=== PATIENT | female | born 1930 | race Caucasian/White ===

== ENCOUNTER 2021-06-06 14:39 | Emergency (ER) | payer OTHER ==
[~2021-06-06] VITALS: Ht 152.4 cm; Wt 63.0 kg
[~2021-06-06 14:39] MED LIST: BYSTOLIC 5 MG5 M1 PO; CATAPRES-TTS 10.1 M1 TRANSDERM; CEFDINIR300 MG PO; CELEBREX 200 M200 M1 PO; CLONIDINE HCL0.1 MG PO; CLONIDINE0.1 PO; COLACE 100 MG100 MG PO; FUROSEMIDE 20 M20 M1 PO; HYDRALAZINE 5050 MG PO; HYDROCHLOROTH12.5 M1 PO; HYDROCHLOROTH12.5 MG PO; HYDROCODON-ACE1 EAC7 PO; IRON160 M1 PO; LIDODERM1 EACH TRANSDERM; LISINOPRIL20 MG PO; LOPRESSOR100 M1 PO; MACROBID 100 M100 M1 PO; METOPROLOL SUC100 MG PO; NOHOMEMEDICATIONS; NORVASC 2.5 MG2.5 M1 PO; PRINIVIL20 MG PO; TOPROL XL25 MG PO; XARELTO10 MG PO
[2021-06-06 15:21] LABS: HEMATOCRIT 34.7 % (37.0-47.0); HEMOGLOBIN 11.6 gm/dL (12.0-15.0); MCH 30.3 pg (26.0-34.0); MCHC 33.5 g/dL (28.0-37.0); MCV 90.7 fL (80.0-100.0); RBC 3.82 mil/uL (4.20-5.00); RDW 13.1 % (10.5-14.5); WBC 3.2 thou/uL (4.0-11.0)
[2021-06-06 15:38] LABS: ANION GAP 9 mmol/L (7-16); BUN 38 mg/dL (7-18); CALCIUM 10.1 mg/dL (8.5-10.1); CHLORIDE 105 mmol/L (98-107); CO2 26 mmol/L (21-32); GLUCOSE 94 mg/dL (74-106); POTASSIUM 3.6 mmol/L (3.5-5.1); SODIUM 140 mmol/L (136-145)
[2021-06-06 15:49] LABS: ALBUMIN 3.9 g/dL (3.4-5.0); MAGNESIUM 2.1 mg/dL (1.8-2.4); PHOSPHORUS 3.6 mg/dL (2.6-4.7); SALICYLATE < 2.8 mg/dL (2.8-20.0); SGOT 38 U/L (15-37); SGPT 25 U/L (14-59); TOTAL BILIRUBIN 0.7 mg/dL (0.2-1.0); TOTAL PROTEIN 7.5 g/dL (6.4-8.2)
[2021-06-06 17:49] LABS: URINE BILIRUBIN NEGATIVE (Negative); URINE BLOOD NEGATIVE (Negative); URINE CLARITY CLEAR; URINE COLOR YELLOW; URINE GLUCOSE-RANDOM* NEGATIVE (Negative); URINE KETONES NEGATIVE (Negative); URINE LEUKOCYTES-REFLEX 1+ (Negative); URINE NITRITE-REFLEX NEGATIVE (Negative); URINE PROTEIN (DIPSTICK) NEGATIVE (Negative); URINE UROBILINOGEN 0.2 E.U./dl (0.2-1.0)
[2021-06-06 17:58] LABS: BACTERIA-REFLEX 1-9 Few /HPF (None Seen); CASTS None Seen /LPF (None Seen); CRYSTALS None Seen /LPF (None Seen); SQUAMOUS 0-3 Few /LPF (0-3); URINE RBC None Seen /HPF (NONE SEEN); URINE WBC-REFLEX 6-15 Few /HPF (0-5); WBC CLUMPS Few (None Seen)
[2021-06-06 17:59] LABS: AMP/METHAMP Negative (Negative); BARBITURATES Negative (Negative); BENZODIAZEPINES Negative (Negative); COCAINE Negative (Negative); METHADONE Negative (Negative); OPIATES Negative (Negative); PCP Negative (Negative)
[2021-06-06 21:13] VITALS: BP 143/70
--- NOTE | 2021-06-09 07:34 | EKG ---
[place] [address] [facility] [place] [address] ELECTROCARDIOGRAM REPORT Name: NYEMEGANERENDIRA Room #: DEP JAYESH Rehman#: [id number] Admission: 06/06/21 Attend Phys: Discharge: 06/06/21 Date of : [birth year] Report #: [id number] [facility] ED Test Date: 2021-06-06 Test Time: 14:56:26 Pat Name: RAUL AYALA Department: Room: Gender: F Staff Mine Warfare Officer: : 1930 Requested By: Dante Richards Order Number: [id number] MD: Joey Alejandro Measurements Intervals [place] Rate: 80 P: -59 ND: 185 QRS: -57 QRSD: 106 T: 107 QT: 492 QTc: 568 Interpretive Statements Atrial-ventricular dual-paced rhythm No further analysis attempted due to paced rhythm No previous ECG available for comparison Electronically Signed On 06-09-2021 7:34:36 CONTROL OPERATOR FLOW COAT by Joey Alejandro [email or web address] <ELECTRONICALLY SIGNED> By: Joey Alejandro MD, [facility] 06/09/21 0734 [id number] Joey Alejandro MD, FACC /EPI
== END 2021-06-06 21:18 ==
LOC: ER 14:39
PROVIDERS: Emergency Medicine
DX: R44.1 Visual hallucinations (principal); Z20.822 Contact with and (suspected) exposure to COVID-19; I10 Essential (primary) hypertension; Z95.0 Presence of cardiac pacemaker; Z79.899 Other long term (current) drug therapy; Z88.8 Allergy status to other drugs, medicaments and biological substances; Z88.1 Allergy status to other antibiotic agents

== ENCOUNTER 2021-06-06 17:53 | Inpatient (IN) | payer OTHER ==
[~2021-06-06] VITALS: Ht 162.6 cm; Wt 69.1 kg
--- NOTE | 2021-06-06 22:14 | NUR ---
Patient admitted to unit from ED at 2120 this shift. Pt calm et cooperative when brought to unit in w/c from ED. Pt ambulated from chair to bed et later ambulated from bed to BR with assistance of 1 with steady gait. Pt states that she usually uses a cane to assist with ambulation. Pt wears glasses et has dentures in place. Pt denies the use of hearing aids. VSWNL. Health assessment with no abnormalities noted at present time. Skin assessment reveals no wounds or lacerations at present time. Pt denies SI/HI/AVH at present time but states that she has been seeing ghosts et that they want to steal things from her. Pt can recall the hallucinations clearly. Pt is continent of bowel et bladder et had a BM this shift. Hospitalist GRADES 7 8 TUTOR notified of pt admission to unit. Psych GRADES 7 8 TUTOR notified of pt admission to unit et orders received et documented. DPOA notified of pt's admission to unit et consent to treat received from DPOA Victor Manuel Esparza (son). DPOA was also notified of pt code for information or to talk with pt. All questions answered at time of call. Pt given unit handbook et all questions answered. Pt currently resting in bed with eyes closed. Will continue to monitor per unit protocol.
[2021-06-06 22:23] VITALS: BP 132/49
[2021-06-07 05:07] LABS: CHOLESTEROL 161 mg/dL (<200); HDL CHOLESTEROL 65 mg/dL (>40); LDL CHOLESTEROL 82 mg/dL (<100); TC:HDL 2.5 Ratio (Not establshd); TRIGLYCERIDE 70 mg/dL (<150); VLDL 14 mg/dL (<40)
[2021-06-07 05:10] LABS: SERUM ASSESSMENT Clear
[2021-06-07 09:01] VITALS: BP 134/86
[2021-06-07 11:00] VITALS: BP 134/86
--- NOTE | 2021-06-07 12:46 | NUR ---
RESUMMED CARE FROM OVERNIGHT SHIFT THIS AM, PATIENT SITTING IN DAY ROOM QUIET. PATIENT ALERT ORIENTED TIMES 4 PATIENT DENIES SI/HI/AH/VH AT PRESENT. PATIENT BEFORE SHE CAME HERE WAS SEEING GHOSTS. SHE STATES NOW SHE KNOWS THE GHOSTS WERE NOT REAL. PATIIENT ATE BREAKFAST TOOK MEDICATION WITHOUT INCIDENCE. PATIENT STATES HER ANXIETY AND DEPRESSION A 2 PATIENTS ABDOMEN SOFT BOWEL SOUNDS PRESENT. PATIENTS LUNGS CLEAR PATIENT PARTICPATES IN ALL GROUPS PATIENT HAS NOT DISPLAYED ANY BEHAVIORS. WILL CONTINUE TO MONITOR PATIENT FOR SAFETY AND BEHAVIORS.
[2021-06-07 19:33] VITALS: BP 109/66
--- NOTE | 2021-06-08 05:26 | NUR ---
Assumed care of pt at 1900. Pt calm et cooperative with pleasant demeanor this shift. Took medications whole without difficulty. Ambulates the halls ad lars with steady gait. Isolated in room most of shift. Continent of bowel et bladder et independent with cares. VSWNL. Health assessment with no abnormalities noted this shift. Denies SI/Hi at present time. Currently resting in bed with eyes closed. Will continue to monitor per unit protocol.
[2021-06-08 05:36] LABS: GLYCOHEMOGLOBIN (HGB A1C) 5.5 % (4.8-5.6)
[2021-06-08 09:26] VITALS: BP 160/84
[2021-06-08 10:13] VITALS: BP 160/84
--- NOTE | 2021-06-08 12:34 | NUR ---
PATIENT CARE ASSUMED AT 0700 - CALM AND AGREEABLE. STATED HAD GOOD NIGHT SLEEP. NO PAIN DISCOMFORT WHEN ASSESSED. COMPLAINT WITH MEDICATIONS. AMBULATES INDEPENDENTLY. STEADY ON FEET. CONTINENT OF BOWEL ET BLADDER. ALERT AND ORIENTED X 3 - DENIES ANY HALLUCINATIONS WHEN QUESTIONED. PATIENT HAD GOOD APPETITE - COMPLEITON OF 75 PERCENT OF MEALS. VITAL SIGNS WNL - POOR HISTORIAN WHEN ASKED QUESTIONS - ANSWERS VAGUE. PARTICIAPTED IN GROUP ACTIVITY. HAS BEEN PLEASANT ALL DAY. WILL CONTINUE TO MONITOR PATIENT FOR SAFETY AND ATTEND TO ANY CHANGES OR CONCERNS THAT DEVELOP.
[2021-06-08 19:26] VITALS: BP 134/75
[2021-06-08 20:00] VITALS: BP 134/75
--- NOTE | 2021-06-08 21:58 | NUR ---
PATIENT SAT OUT IN DINING ROOM THIS EVENING VISITIN WITH OTHER WOMEN. SHE IS MORE TO HERSELF THAN THE OTHERS. SHE TOOK HER MEDS WHOLE WITH WATER. SHE IS ANXIOUS ABOUT TALKING TO THE DOCTOR TOMORROW. SHE STATES THAT HE MAY ASK HER THINGS THAT SHE DOESNT WANT TO TALK ABOUT. REASSURED PATIENT THAT HE WOULD BE KIND AND PATIENT WITH HER. PATIENT SEEMED RELIEVED. SHE DENIES PAIN,SI/HI/AVH. SHE IS A/0X4. PATIENT IS INDEPENDENT WITH CARES. PT IN BED RESTING AT THIS TIME. ROUTINE ROUNDS TO ASSESS SAFETY AND STATUS OF PATIENT.
[2021-06-09 09:30] VITALS: BP 149/84
--- NOTE | 2021-06-09 09:35 | NUR ---
PLEASANT WITH NOTED FULL RANGE AFFECT DURING AM ASSESSMENT AND MEDICATIONS PASS. ALERT AND ORIENTED X3-DOES SPEAK AT LENGTH ABOUT HER AND PREVIOUSLY LIVING IN [place]. DENIES SI/SH/HI. NO NOTED OR REPORTED ACUTE ANXIETY AND DENIES DEPRESSIVE SYMPTOMS. WHEN ASKED ABOUT CIRCUMSTANCES LEADING TO ADMIT GLANCES AT AROUND ROOM TO PEERS ABD STAFF SITTING NEARBY AND STATES "MAYBE WE CAN TALK ABOUT IT LATER IN PRIVATE"
--- NOTE | 2021-06-09 09:54 | NUR ---
Assess due to new admit to [facility] for unspecified psychosis. On regular diet and eating 60-100% of meals. No wt loss reported and does have some wt discrepancies 130-143 lb based on 2 weights taken. B12 levels depleted 216, will need supplemenation. Follow wts and intake trends weekly at team meetings. Otherwise presents low nutrition risk
--- NOTE | 2021-06-09 09:56 | NUR ---
Pts B12 level is 216, please start supplementation.
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
[2021-06-09 19:49] VITALS: BP 90/50
[2021-06-09 20:30] VITALS: BP 90/50
--- NOTE | 2021-06-09 21:57 | NUR ---
PATIENT SAT OUT IN DINING ROOM FOR A WHILE TONIGHT VISITING WHEN SHE BECAME DIZZY SITTING IN HER CHAIR. BP WAS 90/50. SHE WAS DRINKING ORANGE JUICE AT THE TIME. SHE STATES SHE WAS TIRED AND WANTED TO GO TO BED FOR THE NIGHT. RECHECKED HER BP MANUALLY AND IT WAS 98/54. ASSISTED PATIENT TO HER ROOM WITH HER WALKER. ASSISTED HER TO THE BATHROOM AND THEN INTO BED. HELD HER BP MEDS AT HS DUE TO LOW BP. BED ALARM ON AND BED IN LOW POSITION D/T PATIENT FEELING DIZZY AT TIMES. PATIENT A/0X 3. DENIES PAIN, SI/HI/AVH. PLEASANT AND COOPERATIVE. ROUTINE ROUNDS TO ASSESS SAFETY AND STATUS OF PATIENT.
--- NOTE | 2021-06-10 05:12 | NUR ---
PATIENT UP TO BATHROOM WITH ASSIST AROUND 0300. SHE DENIES DIZZINESS. PATIENT STATES SHE FEELS MUCH BETTER. SHE IS A/0X3. PATIENT ASSISTED BACK TO BED. CONTINUING TO MONITOR.
[2021-06-10 07:00] VITALS: BP 134/70
--- NOTE | 2021-06-10 08:31 | NUR ---
Phone call to son, Víctor. MAAME scheduled family meeting for tomorrow at 12:00pm. Víctor is very concerned about placement of the patient. He states the patient doesn't have a large income, approximately $3400 in her bank account and possible VA benefits. Víctor states he and his are not able to take the patient in the home. He has not had any help from his brother, London, who lives on the [address] and has not spoken to the family in 2 to 3 years. Víctor reports attempting to locate placement for the patient; however, with her not having Medicaid, he has not made a lot of ground. The SW will complete a Medicaid referral for the patient.
[2021-06-10 09:43] VITALS: BP 134/70
--- NOTE | 2021-06-10 13:42 | NUR ---
PATIENT CARE ASSUMED AT 0700 - AFFECT REMAINS BLUNTED AND MOOD IRRITABLE. ALERT AND ORIENTED 1-3 - VITALS WNL - AMBULATORY WITH WALKER. PATIENT FOCUSED ON LEAVING AND WANTS TO KNOW WHEN. PATIENT HAS NO PAIN, S/I OR H/I OR HALLUCINATIONS WHEN QUESTIONED. STATED HAD POOR SLEEP - AWOKE SEVERAL TIMES - NO REPORTS OF UNSTEADINESS OR DIZZINESS DURING DAY - ISOLATED TO ROOM AND SLEPT AFTER EACH MEAL. COMPLIANT WITH MEDICATIONS VITALS WNL. WILL CONTINUE TO MONITOR FOR SAFTY AND ADDRESS ANY CONCERNS OR NEEDS APPROPRIATELY.
[2021-06-10 19:20] VITALS: BP 127/78
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
[2021-06-11 10:55] VITALS: BP 118/68
--- NOTE | 2021-06-11 12:36 | NUR ---
PATIENT HAS BEEN UP, AND OUT ON THE UNIT, AMBULATE WITH ASSIST OF WALKER, GAIT SLIGHTLY UNSTEADY. PATIENT TOOK ALL MEDICATION WHOLE WITHOUT DIFFICULTY, SHE IS EATING MEALS, AND DRINKING FLUID WELL. PATIENT DENIES SUICIDAL/HOMICIDAL IDEATION , SHE DENIES DEPRESSION/ANXIETY. PATIENT DENIES VISUAL/AUDITORY HALLUCINATION, "IT WAS JUST A ONE TIME THING, I COULDN'T BELIEVE I DID ALL THAT". LCTA, RESP EVEN/UNLABORED, NO SOA/CYANOSIS NOTED. BS+X4, ABD SOFT, NONE-TENDER TO TOUCH. AFFECT IS BRIGHT, MOOD IS CALM, COOPERATIVE WITH CARE. PATIENT IS NOW ON ROOM LOCK-OUT FOR MEALS/GROUPS. NO SIGN OF ACUTE DISTRESS NOTED AT THIS TIME, WILL MNITOR FOR SAFETY.
[2021-06-11 15:03] LABS: CALCIUM 9.1 mg/dL (8.5-10.1); CREATININE 1.6 mg/dL (0.6-1.0); POTASSIUM 4.7 mmol/L (3.5-5.1)
--- NOTE | 2021-06-11 16:44 | NUR ---
Family meeting for patient. The patient's son, Víctor and his , Linda were present along with Dr. Curtis. Dr. Curtis reviewed medication for the patient. Víctor is coming today to sign the application for Medicaid for the patient. Víctor will also bring a copy of the DPOA as the first page had been missing. Víctor is concerned about placement and strongly voices that he and his are unable to care for the patient in the home. Víctor is open to placement outside of the area for the patient and reports he will drive. Dr. Curtis recommended assisted living memory care for the patient but expressed that assisted living may be acceptable. Dr. Curtis also let the family know that the patient is on a room lockout to encourage participation in groups and eating meals in the dayroom.
--- NOTE | 2021-06-11 22:44 | NUR ---
At onset of security shift supervisor pt was sitting in day room watching TV and socializing with peers. This shift pt was alert and oriented x4. Pt was overall calm, pleasant and cooperative. Affect was broad. Speech was clear. Pt was compliant with medication and vital signs. Pt denied SI and AVH. Pt shared that she is worried about her belongings at her apartment. Pt stated she wants to put her belongings in a storage unit. Pt is a low fall risk. Fall precautions are in place overall for pt given her gait and age. Will continue to monitor.
[2021-06-12 07:46] VITALS: BP 167/81
[2021-06-12 12:47] VITALS: BP 167/81
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
--- NOTE | 2021-06-12 16:15 | NUR ---
Phone call from Rin Morgan - [phone] - with [facility]. SW provided an update for the patient including current status, Medicaid pending and search for placement. Rin reported she would send some placement options.
[2021-06-12 19:50] VITALS: BP 115/69
[2021-06-12 21:06] LABS: SYPHILIS AB Non Reactive (Non Reactive)
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
[2021-06-13 06:16] LABS: ALBUMIN 3.1 g/dL (3.4-5.0); CALCIUM 9.4 mg/dL (8.5-10.1); CREATININE 1.6 mg/dL (0.6-1.0); PHOSPHORUS 3.5 mg/dL (2.6-4.7); POTASSIUM 4.2 mmol/L (3.5-5.1)
[2021-06-13 09:48] VITALS: BP 118/55
[2021-06-13 12:59] VITALS: BP 118/55
--- NOTE | 2021-06-13 17:24 | NUR ---
Resummed cares @0700: Patient was located in her room, resting comfortably. No S/O acute distress noted. A&O*3 - forgetful. Patient was assisted up by AVIATION ELECTRICAL TECHNICIAN for breakfast, after the DIETARY SUPERVISOR came to me reporting the patient refused to get up and eat. After speaking with patient she stated "I'm just so tired." Patient did come out of room and ate 90% of breakfast. VSS on RoomAir. Denies SI/HI/AVH. Denies Pain, SOB, Pain. Labs were reivewed: BUN was elevated - MD Aponte was aware and staff is to continue pushing fluids. Presents sad, withdrawn, although cooperative and pleasent. Gait is steady with the use of a walker. Low-fall precautions are in place, will continue to monitior per [facility] protocol.
[2021-06-13 19:51] VITALS: BP 155/87
--- NOTE | 2021-06-13 22:54 | NUR ---
Patient has been cooperative with care this shift. She is med-compliant, although she reports the meds are making her tired and she feels they are making her sleep during the day. Patient is alert and oriented to self, but she appears more confused tonight than previously. She was asking staff when she could go out and was requesting things from the store. Patient did not voice any concerns of depression, SI/HI, but she did verbalize several things indicative of hallucinations. She stated that when she was eating dessert earlier today, she went to cut into it "and it disappeared." She also reported a book disappearing. Patient asks this RN "Is that dimentia?" She appeared anxious and speech was rapid. Patient said "it's coming on so fast." Pt later was looking at the blankets on the bed and talking about bugs. RN reassured her that there are no bugs in the bed. Pt c/o back pain and received one dose of PRN Tylenol. Upon pain reassessment, pt was sleeping.
[2021-06-14 10:44] VITALS: BP 127/76
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
[2021-06-14 20:08] VITALS: BP 118/57
--- NOTE | 2021-06-15 05:22 | NUR ---
Assumedc are of pt at 1900. Pt calm et cooperative this shift. Took medications whole without difficulty. Ambulates the halls ad lars with steady gait. Isolated in room most of shift. VSWNL. Health assessment with no abnormalities noted this shift. Pt denies SI/HI at present time. Currently resting in bed with eyes closed. Will continue to monitor per unit protocol.
[2021-06-15 08:55] VITALS: BP 157/77
[2021-06-15 09:05] VITALS: BP 157/77
--- NOTE | 2021-06-15 11:15 | NUR ---
RESUMMED CARE FROM OVERNIGHT SHIFT THIS AM PATIENT IN ROOM LYING QUIETLY IN BED. PATIENT DID HYGIENE CAME TO DAY ROOM FOR BREAKFAST SHE ATE TOOK MEDICATION WITHOUT INCIDENCE. PATIENT ALERT TO SELF AND SITUATION ONLY PATIENT AFTER BREAKFAST WENT TO ROOM TO GO BACK TO BED. I WENT AND GOT PATIENT UP AND TOLD HER SHE MUST PARTICIPATES IN GROUPS. PATIENT LIKES TO ISOLATE IN ROOM PATIENT DENIES SI/HI/AH/VH AT PRESENT. PATIENTS ABDOMEN SOFT BOWELS SOUNDS PRESENT. PATIENTS LUNGS CLEAR PATIENT HAS NOT DISPLAYED ANY BEHAVIORS NO SKIN ISSUES. WILL CONTINUE TO MONITOR PATIENT FOR SAFETY AND BEHAVIORS.
--- NOTE | 2021-06-15 11:26 | NUR ---
SHAFTING WORKER WEEKLY NOTE---PATIENT APPEARS TO BE IN A OKAY MOOD MAJORITY OF THE TIME. PATIENT PROVIDES PARTICIPATION. PATIENT NEEDS ENCOURAGEMENT TO ATTEND GROUPS CONSISTENTLY, OTHERWISE SHE WILL TRY TO STAY IN HER ROOM.
[2021-06-15 19:30] VITALS: BP 155/86
[2021-06-15 19:45] VITALS: BP 157/77
--- NOTE | 2021-06-15 22:58 | NUR ---
Assumed care on 06/15/21 @ 1900, in bed, arouses to voice, A&Ox2 to self and situaion only. Cooperative with assessment, confusion noted, asks quesiton repeatedly. HRRR, Lungs CTA bilat, ABD N x 4Q. Denies SI/HI, anxiety and depression. Continent of B&B, last BM on 06/13. Bed in low position, will continue to round as per unit protocol for comfort and safety.
[2021-06-16 08:10] VITALS: BP 124/63
[2021-06-16 08:45] VITALS: BP 124/63
--- NOTE | 2021-06-16 10:48 | NUR ---
Nutrition followup: pt continues on H unit with psychosis. Eats 75-100% of meals on regular diet. No weight loss reported. Prior weights 130-143#, with most recent weight 152#. Follow trends for accuracy. On B12 and vitamin D supplements. Consider low nutrition risk.
--- NOTE | 2021-06-16 12:19 | NUR ---
Assumed pt care this morning from overnight shift. Pt presented alert and oriented to person and place during this time. Pt pleasant and calm during assessment, denying anxiety and depression when asked. Pt denied hallucinations during this time. Pt denied any si/hi when asked. No pain stated upon assessment. Lung sounds clear. Bowel sounds active. Pt has been encouraged to go to groups and stay out of room during group times in order to participate. Currently continues to isolate in room despite prompting. q12 minute checks in place. All medications taken and well tolerated. No further concerns at this time.
--- NOTE | 2021-06-16 16:49 | NUR ---
Phone call received from Margoth Johnson of [facility]. Margoth reported that she would need a copy of the patient's DPOA paperwork, COVID vaccination card and the diagnosis showing dementia. MAAME will fax that information.
[2021-06-16 19:45] VITALS: BP 142/79
[2021-06-16 20:23] VITALS: BP 142/79
[2021-06-16 20:50] VITALS: BP 142/79
--- NOTE | 2021-06-16 21:48 | NUR ---
PATIENT CARE WAS RESUMED AT 1900. SHE IS ALERT AND ORINETED. MODERATE ASSIT WITH CARE. ABLE TO VERBALIZE HER NEEDS. LUNGS ARE CLEAR S ACTIVE X4 QUAD. SHE DENIES PAINS/SI/AVH/HI. BED IS LOCKED LOW AND ALARMED. [id number] CHECK IS ONGOING. MAX ASSIST WITH JATIN-CARE
== END 2021-06-17 | DRG 57 ==
LOC: SBH
PROVIDERS: Hospitalist; Nurse Practitioner Psychiatric/Mental Health; ADMIT Psychiatry & Neurology Psychiatry; ATTEND Psychiatry & Neurology Psychiatry
DX: G30.9 Alzheimer's disease, unspecified (principal); F02.81 Dementia in other diseases classified elsewhere, unspecified severity, with behavioral disturbance; F01.51 Vascular dementia, unspecified severity, with behavioral disturbance; F29 Unspecified psychosis not due to a substance or known physiological condition; Z88.8 Allergy status to other drugs, medicaments and biological substances; Z20.822 Contact with and (suspected) exposure to COVID-19; Z79.899 Other long term (current) drug therapy; I10 Essential (primary) hypertension; Z91.83 Wandering in diseases classified elsewhere
CPT/HCPCS: 10880